=== PATIENT | male | born 1975 | race Caucasian/White ===

== ENCOUNTER 2018-01-28 15:23 | Emergency (ER) | payer OTHER ==
[~2018-01-28 15:23] MED LIST: ALB17R INH; ATOR10TA24 PO; BIOT800T4 PO; CALC-475 PO; CALC-515 PO; CLI150 PO; CLON-303 *; CLON-303 PO; ETOD-1 PO; FLUNR; FLUTR; GUAI1TAB PO; LEVO750T25 PO; LOR5/325 PO; MULT-820 PO; NAPR-1043 PO; OXYIR PO; PROP80TA25 PO; PSEU120T9 PO; RIS1 PO; SERT-173 PO; SILV20CR2 TP; SKULLCAP; TADA20TA33 PO; [UNRECOGNIZED DRUG - CODE] MC; [UNRECOGNIZED DRUG - CODE] PO; [UNRECOGNIZED DRUG - CODE] PO; [UNRECOGNIZED DRUG - OTHER]; [UNRECOGNIZED DRUG - OTHER]; [UNRECOGNIZED DRUG - OTHER] PO; [UNRECOGNIZED DRUG - REMARK]; [UNRECOGNIZED DRUG - REMARK]
[2018-01-28 15:30] VITALS: BP 112/96
[2018-01-28] MEDS ORDERED: DIPHTH/TETANUS/ACEL. PERTUSSIS IM ONLY ONE (15:30)
[2018-01-28] MEDS ORDERED: CETI-176 PO (15:30)
[2018-01-28] MEDS ORDERED: CLIN300C99 PO (15:33)
--- NOTE | 2018-01-28 15:33 | ER Report ---
History and Physical Time Seen By MD: 15:29 HPI/ROS CHIEF COMPLAINT: Stepped on a nail HISTORY OF PRESENT ILLNESS: 42-year-old male who stepped on a nail prior to presentation went through his gym shoe and sock into the bilateral dorsum plantar surface of his foot no bleeding barely broke the skin surface no other complaints noted REVIEW OF SYSTEMS: Respiratory: No cough, no dyspnea. Cardiovascular: No chest pain, no palpitations. Gastrointestinal: No vomiting, no abdominal pain. Musculoskeletal: No back pain. Remainder of the 14 system rev: Yes Allergies: Coded Allergies: Penicillins (Verified Allergy, Severe, 01/11/17) acetaminophen (Verified Adverse Reaction, Intermediate, UPSET STOMACH, ) Home Meds Active Scripts Hydrocodone Bit/Acetaminophen (HYDROCODON-ACETAMINOPHEN 5-325) 1 Each Tablet, 1 EACH PO Q4-6H, #8 TAB Prov:DARRELL MONROY NP 01/11/17 Silver Sulfadiazine (SILVADENE) 20 Gm Cream..g., 20 GM TP BID for 10 Days, #20 Prov:QUINTON GOMEZ MD 12/21/16 Reported Medications Pseudoephedrine Hcl (PSEUDOEPHEDRINE) 120 Mg Tablet.er, 120 MG PO QDAY 09/30/16 Naproxen Sodium (ALEVE) 220 Mg Tablet, 500 MG PO PRN, TAB 09/30/16 Atorvastatin Calcium (LIPITOR) 10 Mg Tablet, 1 TAB PO QDAY, TAB 09/30/16 Reviewed Nurses Notes: Yes Old Medical Records Reviewed: Yes Physical Exam General appearance: Alert no distress. Respiratory: Chest is non tender, lungs are clear to auscultation. Cardiac: Regular rate and rhythm [ ] Skin foot examination demonstrates a very small puncture wound very shallow barely through the dermal layer no signs of infection streaking astride a no sign of retained foreign body otherwise unremarkable DIFFERENTIAL DIAGNOSIS: After history and physical exam differential diagnosis was considered for stepped on a nail Medical Decision Making ED Course/Re-evaluation ED Course Patient's wound was barely superficial no need for copious irrigation we'll clean the wound update his tetanus started on antibiotics is allergic to penicillin Clindamycin and have him follow up with primary care if wound infection signs present Decision to Disposition Date: Jan 28, 2018 Decision to Disposition Time: 15:31 Depart Departure Impression: Primary Impression: Puncture wound Condition: Improved Disposition: HOME OR SELF-CARE Referrals: DIONTE GARZA MD 5 Days New Scripts Clindamycin Hcl (CLINDAMYCIN HCL) 300 Mg Capsule 300 MG PO Q6H, #40 CAPSULE Prov: QUINTON GOMEZ MD 01/28/18 Patient Instructions: Puncture Wound (DC) QUINTON GOMEZ MD Jan 28, 2018 15:33
== END 2018-01-28 15:45 | disposition home or self-care (01) ==
LOC: ER 15:30
DX: S91.332A Puncture wound without foreign body, left foot, initial encounter (principal)
CPT/HCPCS: 90471; 90715; 99283

== ENCOUNTER 2018-02-22 18:17 | Emergency (ER) | payer OTHER ==
[~2018-02-22 18:17] MED LIST changes: +CETI-176 PO; +CLIN300C99 PO
--- NOTE | 2018-02-22 18:18 | ER Report ---
History and Physical Time Seen By MD: 18:18 HPI/ROS CHIEF COMPLAINT: Left arm numbness, epigastric pain HISTORY OF PRESENT ILLNESS: 42-year-old male with a history of hypercholesterolemia presents with sudden onset of epigastric pain 30 minutes with left arm numbness. Patient notes some mild diaphoresis and some nausea. He denies shortness of breath. He notes cardiac history and his mom having an MD at age 69. Patient denies other cardiac risk factors hypertension, diabetes , smoker. Patient notes no exertional component. Patient notes no alleviating or exacerbating factors. Patient denies recent illness. Patient denies leg swelling or calf pain. REVIEW OF SYSTEMS: Respiratory: No cough, no dyspnea. Cardiovascular: As above Gastrointestinal: No vomiting, no abdominal pain. Musculoskeletal: No back pain. Allergies: Coded Allergies: Penicillins (Verified Allergy, Severe, 02/22/18) acetaminophen (Verified Adverse Reaction, Intermediate, UPSET STOMACH, 02/22) Uncoded Allergies: ANTIPSYCOTIC MEDS (Allergy, Unknown, 02/22/18) Home Meds Reported Medications Cetirizine Hcl (ZYRTEC) 10 Mg Tablet, 10 MG PO QDAY, TAB 01/28/18 Atorvastatin Calcium (LIPITOR) 10 Mg Tablet, 1 TAB PO QDAY, TAB 09/30/16 Discontinued Scripts Clindamycin Hcl (CLINDAMYCIN HCL) 300 Mg Capsule, 300 MG PO Q6H, #40 CAPSULE Prov:QUINTON GOMEZ MD 01/28/18 Reviewed Nurses Notes: Yes Old Medical Records Reviewed: Yes Constitutional Vital Sign - Last 24 Hours 02/22/18 02/22/18 02/22/18 18:21 19:00 19:30 Temp 97.6 Pulse 108 95 98 Resp 12 16 14 B/P (MAP) 163/114 153/111 (125) 144/102 (116) Pulse Ox 97 97 97 O2 Delivery Room Air Room Air Room Air Physical Exam General Appearance: The patient is alert, has no immediate need for airway protection and no current signs of toxicity. Mild distress, vital signs stable , afebrile, pulse ox normal HEENT: Pupils equal and round no injection. TMs, oropharynx without redness or exudate Respiratory: Chest is non tender, lungs are clear to auscultation. No chest wall tenderness Cardiac: regular rate and rhythm Gastrointestinal: Abdomen is soft and non tender, no masses, bowel sounds normal. Musculoskeletal: Neck: Neck is supple and non tender. Extremities have full range of motion and are non tender. Skin: No rashes or lesions. DIFFERENTIAL DIAGNOSIS: After history and physical exam differential diagnosis was considered for chest pain including but not limited to myocardial ischemia, pericarditis pulmonary embolus, chest wall pain, pleural inflammation and pulmonary infectious causes. Medical Decision Making Data Points Result Diagram: 02/22/18 1840 02/22/18 1840 Laboratory Hematology Test 02/22/18 18:40 Red Blood Count 6.06 M/uL (4.00-5.60) Mean Corpuscular Volume 86.1 fL (80.0-96.0) Mean Corpuscular Hemoglobin 30.2 pg (26.0-33.0) Mean Corpuscular Hemoglobin Concent 35.1 g/dL (32.0-36.0) Red Cell Distribution Width 13.0 % (11.5-14.5) Mean Platelet Volume 8.2 fL (7.2-11.1) Neutrophils (%) (Auto) 50.9 % (39.4-72.5) Lymphocytes (%) (Auto) 38.8 % (17.6-49.6) Monocytes (%) (Auto) 8.6 % (4.1-12.4) Eosinophils (%) (Auto) 1.1 % (0.4-6.7) Basophils (%) (Auto) 0.6 % (0.3-1.4) Nucleated RBC Relative Count (auto) 0.1 /100WBC Neutrophils # (Auto) 3.9 K/uL (2.0-7.4) Lymphocytes # (Auto) 3.0 K/uL (1.3-3.6) Monocytes # (Auto) 0.7 K/uL (0.3-1.0) Eosinophils # (Auto) 0.1 K/uL (0.0-0.5) Basophils # (Auto) 0.0 K/uL (0.0-0.1) Nucleated RBC Absolute Count (auto) 0.01 K/uL D-Dimer Quantitative (PE/DVT) < 0.27 ug/ml (0-0.50) Sodium Level 142 mmol/L (137-145) Potassium Level 3.8 mmol/L (3.5-5.0) Chloride Level 102 mmol/L (98-107) Carbon Dioxide Level 26 mmol/L (22-30) Blood Urea Nitrogen 16 mg/dl (9-21) Creatinine 1.00 mg/dl (0.66-1.25) Glomerular Filtration Rate Calc > 60.0 Random Glucose 131 mg/dl (75-110) Calcium Level 8.9 mg/dl (8.4-10.2) Total Bilirubin 0.7 mg/dl (0.2-1.3) Aspartate Amino Transf (AST/SGOT) 33 U/L (0-35) Alanine Aminotransferase (ALT/SGPT) 57 U/L (0-56) Alkaline Phosphatase 94 U/L (0-126) Troponin I < 0.012 ng/ml Total Protein 7.6 g/dl (6.3-8.2) Albumin 4.3 g/dl (3.5-5.0) Chemistry Test 02/22/18 18:40 White Blood Count 7.6 k/uL (4.5-11.0) Red Blood Count 6.06 M/uL (4.00-5.60) Hemoglobin 18.3 g/dL (14.0-18.0) Hematocrit 52.1 % (42.0-52.0) Mean Corpuscular Volume 86.1 fL (80.0-96.0) Mean Corpuscular Hemoglobin 30.2 pg (26.0-33.0) Mean Corpuscular Hemoglobin Concent 35.1 g/dL (32.0-36.0) Red Cell Distribution Width 13.0 % (11.5-14.5) Platelet Count 278 K/uL (150-450) Mean Platelet Volume 8.2 fL (7.2-11.1) Neutrophils (%) (Auto) 50.9 % (39.4-72.5) Lymphocytes (%) (Auto) 38.8 % (17.6-49.6) Monocytes (%) (Auto) 8.6 % (4.1-12.4) Eosinophils (%) (Auto) 1.1 % (0.4-6.7) Basophils (%) (Auto) 0.6 % (0.3-1.4) Nucleated RBC Relative Count (auto) 0.1 /100WBC Neutrophils # (Auto) 3.9 K/uL (2.0-7.4) Lymphocytes # (Auto) 3.0 K/uL (1.3-3.6) Monocytes # (Auto) 0.7 K/uL (0.3-1.0) Eosinophils # (Auto) 0.1 K/uL (0.0-0.5) Basophils # (Auto) 0.0 K/uL (0.0-0.1) Nucleated RBC Absolute Count (auto) 0.01 K/uL D-Dimer Quantitative (PE/DVT) < 0.27 ug/ml (0-0.50) Glomerular Filtration Rate Calc > 60.0 Calcium Level 8.9 mg/dl (8.4-10.2) Total Bilirubin 0.7 mg/dl (0.2-1.3) Aspartate Amino Transf (AST/SGOT) 33 U/L (0-35) Alanine Aminotransferase (ALT/SGPT) 57 U/L (0-56) Alkaline Phosphatase 94 U/L (0-126) Troponin I < 0.012 ng/ml Total Protein 7.6 g/dl (6.3-8.2) Albumin 4.3 g/dl (3.5-5.0) Coagulation Test 02/22/18 18:40 D-Dimer Quantitative (PE/DVT) < 0.27 ug/ml EKG/Imaging EKG Interpretation 12 lead EK Rhythm: Sinus tachycardia, rate 105 [place]: normal QRS: normal ST segments: normal, no evidence of ischemia or dysrhythmia Monitor Interpretation: Normal Sinus Rhythm Imaging X-ray: Two-view chest x-ray was obtained. I viewed the images myself on the PACS system. My interpretation of the images is: No infiltrate, no effusion, normal mediastinum. [The radiologist interpretation had no clinically significant variation from this interpretation]. ED Course/Re-evaluation Clinical Indication for ER IV: IV Access ED Course Patient was admitted to an examination room. H&P was done. The differential diagnoses was considered. On clinical examination. Patient has no chest wall tenderness. His EKG is normal. His d-dimer and troponin were unremarkable. Patient's chest x-ray was unremarkable. Patient was informed. His glucose was elevated. That he may have prediabetes. She is advised follow-up with primary care at the [facility] for recheck of his glucose. Patient will likely need a fasting level. Patient was informed that he has elevated H&H. He notes it's been chronic. He's been advised to donate blood. [facility]. Decision to Disposition Date: Feb 22, 2018 Decision to Disposition Time: 19:21 Depart Departure Latest Vital Signs Vital Signs Date Time Temp Pulse Resp B/P (MAP) Pulse Ox O2 Delivery O2 Flow Rate FiO2 02/22/18 19:30 98 14 144/102 (116) 97 Room Air 02/22/18 18:21 97.6 Impression: Primary Impression: Chest pain Additional Impressions: Pre-diabetes Polycythemia Hyperlipidemia GERD (gastroesophageal reflux disease) Condition: Improved Disposition: HOME OR SELF-CARE Patient Instructions: Gastroesophageal Reflux Disease (ED) Additional Instructions: Take Omeprazole/Prilosec 20 mg per day for one week for treatment of acid reflux [facility] a [facility] blood glucose level and hemoglobin A1c Also have evaluation for your elevated red blood cell count called polycythemia Problem Qualifiers Primary Impression: Chest pain Chest pain type: unspecified Qualified Codes: R07.9 - Chest pain, unspecified Additional Impressions: Hyperlipidemia Hyperlipidemia type: unspecified Qualified Codes: E78.5 - Hyperlipidemia, unspecified GERD (gastroesophageal reflux disease) Esophagitis presence: esophagitis presence not specified Qualified Codes: K21.9 - Gastro-esophageal reflux disease without esophagitis LAVONNE ARRIAGA DO Feb 22, 2018 18:18
[2018-02-22] MEDS ORDERED: ASPIRIN 81 MG CHEW PO ONE (18:35)
--- NOTE | 2018-02-22 18:42 | EKG ---
FACILITY: [facility] - [place] PATIENT NAME: BARBARA FRASER : [id number] MR: [id number] V: [id number] EXAM DATE: ORDERING PHYSICIAN: LAVONNE ARRIAGA TECHNOLOGIST: LEONCIO Khan Reason : Blood Pressure : / mmHG Vent. Rate : 105 BPM Atrial Rate : 105 BPM P-R Int : 128 ms QRS Dur : 096 ms QT Int : 346 ms P-R-T Axes : 059 067 011 degrees QTc Int : 457 ms Sinus tachycardia Otherwise normal ECG No previous ECGs available Confirmed by GINNY RICH ([id number]) on 02/22/2018 10:17:47 PM Referred By: Confirmed By:GINNY RICH
[2018-02-22 18:54] LABS: PLATELET COUNT, AUTOMATED 278 K/uL (150-450)
--- NOTE | 2018-02-22 19:19 | RADIOLOGY IMAGING REPORT ---
FACILITY: [facility] PATIENT NAME: Farhan Becker : 1975 MR: [id number] V: [id number] EXAM DATE: ORDERING PHYSICIAN: LAVONNE ARRIAGA TECHNOLOGIST: Location: [facility] [place] Patient: Farhan Becker : 1975 Visit/Account:[id number] Date of Sevice: 02/22/2018 CHEST PA AND LAT COMPARISONS: Single view chest dated August 10, 2008 ADDITIONAL PERTINENT HISTORY: Chest pain for one hour FINDINGS: Cardiomediastinal silhouette: Negative. Pulmonary vasculature: Negative. Lung leo: Negative. Pleural spaces: Negative. Osseous structures: Negative. Surrounding soft tissues: Negative. IMPRESSION: Normal views of the chest. Report Dictated By: Adrián Briscoe MD at 02/22/2018 7:14 PM Report E-Signed By: Adrián Briscoe MD at 02/22/2018 7:15 PM WSN:[id number]
[2018-02-22 19:30] VITALS: BP 144/102
== END 2018-02-22 19:41 | disposition home or self-care (01) ==
LOC: ER 18:25
DX: R07.9 Chest pain, unspecified (principal); R73.03 Prediabetes; D75.1 Secondary polycythemia; E78.5 Hyperlipidemia, unspecified; K21.9 Gastro-esophageal reflux disease without esophagitis
CPT/HCPCS: 36415; 71046; 82040; 82247; 82310; 82374; 82435; 82565; 82947; 84075; 84132; 84155; 84295; 84450; 84460; 84484; 84520; 85025; 85379; 93005; 99284

== ENCOUNTER 2018-04-24 16:09 | Emergency (ER) | payer OTHER ==
--- NOTE | 2018-04-24 16:28 | ER Report ---
History and Physical Time Seen By MD: 16:18 Hx. of Stated Complaint: PT REPORTS INFECTED STITCHES FROM BENIGN TUMOR REMOVAL DONE AT [facility] 8 DAYS AGO HPI/ROS CHIEF COMPLAINT: infected stitches HISTORY OF PRESENT ILLNESS: This is a 42 year old male. He had a lesion removed from abdominal skin on left lower abdomen last (8 days ago). Redness with a few small pustules on the skin around the wound. Healing well and no sign of dehiscence. Concerned about infection. Having increased pain in the area. No fevers. Allergies: Coded Allergies: Penicillins (Verified Allergy, Severe, 04/24/18) acetaminophen (Verified Adverse Reaction, Intermediate, UPSET STOMACH, 04/24/18) Uncoded Allergies: ANTIPSYCOTIC MEDS (Allergy, Unknown, 02/22/18) Home Meds Active Scripts Oxycodone Hcl (OXYCODONE HCL) 5 Mg Tablet, 5 MG PO Q4H PRN for PAIN, #8 TAB 0 Refills Prov:KAMRON DOAN MD 04/24/18 Sulfamethoxazole/Trimet 800-160 Mg Tab (BACTRIM DS TABLET) 1 Each Tablet, 1 TAB PO Q12H, #14 TAB 0 Refills Prov:KAMRON DOAN MD 04/24/18 Reported Medications Cetirizine Hcl (ZYRTEC) 10 Mg Tablet, 10 MG PO QDAY, TAB 01/28/18 Atorvastatin Calcium (LIPITOR) 10 Mg Tablet, 1 TAB PO QDAY, TAB 09/30/16 Reviewed Nurses Notes: Yes Constitutional Vital Sign - Last 24 Hours 04/24/18 04/24/18 04/24/18 16:12 16:15 16:30 Temp 98.1 Pulse 104 105 103 Resp 16 B/P (MAP) 145/105 136/104 (115) Pulse Ox 91 94 92 O2 Delivery Room Air Physical Exam General: Alert, mild distress due to pain. Skin: Running stitches with surrounding skin very red and warm and inflamed. Tender to touch. Small pustules near where stitches go through the skin, but the incision itself is not coming apart and no drainage from incision. Medical Decision Making ED Course/Re-evaluation ED Course I removed the stitches and then reinforced the skin with steri-strips and benzoin. Wound without dehiscence. Discussed wound care. Bactrim DS prescribed. Oxycodone without acetaminophen immediate release provided to help with pain. Decision to Disposition Date: Apr 24, 2018 Decision to Disposition Time: 16:29 Depart Departure Latest Vital Signs Vital Signs Date Time Temp Pulse Resp B/P (MAP) Pulse Ox O2 Delivery O2 Flow Rate FiO2 04/24/18 16:30 103 136/104 (115) 92 04/24/18 16:12 98.1 16 Room Air Impression: Primary Impression: Wound, surgical, infected Condition: Improved Disposition: HOME OR SELF-CARE New Scripts Oxycodone Hcl (OXYCODONE HCL) 5 Mg Tablet 5 MG PO Q4H PRN for PAIN, #8 TAB 0 Refills Prov: KAMRON DOAN MD 04/24/18 Sulfamethoxazole/Trimet 800-160 Mg Tab (BACTRIM DS TABLET) 1 Each Tablet 1 TAB PO Q12H, #14 TAB 0 Refills Prov: KAMRON DOAN MD 04/24/18 Patient Instructions: Cellulitis (ED) Additional Instructions: Take the antibiotic Bactrim DS twice a day for 7 days. Take Ibuprofen as needed for pain. For more severe pain, take oxycodone 5mg tablets, one every 4 hours as needed for pain. Wash the wound twice a day with soap and water and apply a clean dressing. Apply a heating pad every hour for 15-20 minutes to help bring blood flow to the area. Problem Qualifiers Primary Impression: Wound, surgical, infected Encounter type: initial encounter Qualified Codes: T81.4XXA - Infection following a procedure, initial encounter KAMRON DOAN MD Apr 24, 2018 16:28
[2018-04-24 16:30] VITALS: BP 136/104
[2018-04-24] MEDS ORDERED: OXYC5TAB38 PO (16:30)
[2018-04-24] MEDS ORDERED: SULF-198 PO (16:30)
== END 2018-04-24 16:38 | disposition home or self-care (01) ==
LOC: ER 16:19
DX: T81.4XXA Infection following a procedure, initial encounter (principal)
CPT/HCPCS: 99282

== ENCOUNTER 2018-10-08 14:56 | Emergency (ER) | payer OTHER ==
[~2018-10-08 14:56] MED LIST changes: +OXYC5TAB38 PO; +SULF-198 PO
[2018-10-08] MEDS ORDERED: ROPI0.2530 PO (15:15)
[2018-10-08] MEDS ORDERED: ESCI20TA8 PO (15:15)
--- NOTE | 2018-10-08 15:55 | ER Report ---
History and Physical Time Seen By MD: 15:20 Hx. of Stated Complaint: left arm pain HPI/ROS CHIEF COMPLAINT: arm pain HISTORY OF PRESENT ILLNESS: 42-year-old male presents with 36 hours of intermittent left arm pain. He states this happens occasionally, usually every 2 weeks, seems to happen when he lies on the left arm. Of note, he has history of shrapnel injury to the left wrist as well as nerve decompression surgery. He has had symptoms intermittently since that time. However, patient is concerned because his mother recently had a heart attack in father recently had a stroke, and is concerned that this may be sign of heart attack. He does not have chest pain, shortness of breath, symptoms with exertion. He does have hypertension and hypercholesterol. He has had recent congestion and URI symptoms. He is not traveled in the last 6 weeks. He does not have lower extremity swelling, pain. REVIEW OF SYSTEMS: Constitutional: No fever, no chills. Eyes: no blurred vision ENT: No sore throat. Cardiovascular: No chest pain, no palpitations. Respiratory: No cough, no shortness of breath. Gastrointestinal: no vomiting Genitourinary: no dysuria Musculoskeletal: No back pain. Otherwise as above Skin: No rashes. Neurological: No headache. Remainder of the 14 system rev: Yes Allergies: Coded Allergies: Penicillins (Verified Allergy, Severe, 10/08/18) acetaminophen (Verified Adverse Reaction, Intermediate, UPSET STOMACH, 10/08/18) Uncoded Allergies: ANTIPSYCOTIC MEDS (Allergy, Unknown, 02/22/18) Home Meds Reported Medications Ropinirole Hcl (ROPINIROLE HCL) 0.25 Mg Tablet, 0.25 MG PO QDAY 10/08/18 Escitalopram Oxalate (ESCITALOPRAM OXALATE) 20 Mg Tablet, 20 MG PO QDAY 10/08/18 Cetirizine Hcl (ZYRTEC) 10 Mg Tablet, 10 MG PO QDAY, TAB 01/28/18 Atorvastatin Calcium (LIPITOR) 10 Mg Tablet, 1 TAB PO QDAY, TAB 09/30/16 Discontinued Scripts Oxycodone Hcl (OXYCODONE HCL) 5 Mg Tablet, 5 MG PO Q4H PRN for PAIN, #8 TAB 0 Refills Prov:KAMRON DOAN MD 04/24/18 Sulfamethoxazole/Trimet 800-160 Mg Tab (BACTRIM DS TABLET) 1 Each Tablet, 1 TAB PO Q12H, #14 TAB 0 Refills Prov:KAMRON DOAN MD 04/24/18 Reviewed Nurses Notes: Yes Constitutional Vital Sign - Last 24 Hours 10/08/18 10/08/18 10/08/18 10/08/18 15:06 15:11 15:26 15:26 Temp 97.7 Pulse 86 77 Resp 12 B/P (MAP) 169/122 (138) 169/122 148/111 (123) Pulse Ox 95 94 O2 Delivery Room Air 10/08/18 10/08/18 10/08/18 16:01 16:26 16:46 Pulse 78 77 B/P (MAP) 138/113 (121) Pulse Ox 93 92 Physical Exam General Appearance: The patient is alert, has no immediate need for airway protection and no signs of toxicity. [ ] Eyes: Pupils equal and round no pallor or injection. ENT, Mouth: Mucous membranes are moist. Respiratory: There are no retractions, lungs are clear to auscultation. Cardiovascular: Regular rate and rhythm. Neurological: alert, moves all ext Skin: Warm and dry, no rashes. Musculoskeletal: Neck is supple non tender. Extremities are nontender, nonswollen and have full range of motion with exception of palpation of left upper prox arm, without erythema, mass, lymphadenopathy. DIFFERENTIAL DIAGNOSIS: After history and physical exam differential diagnosis was considered for acs, pe, pneumonia, pneumothorax Medical Decision Making Data Points Laboratory Hematology Test 10/08/18 15:22 Troponin I < 0.012 ng/ml Chemistry Test 10/08/18 15:22 Troponin I < 0.012 ng/ml EKG/Imaging EKG Interpretation 12 lead EKG: Rhythm: Normal sinus rhythm [place]: Normal QRS: Normal ST segments: Normal Monitor Interpretation: Normal Sinus Rhythm ED Course/Re-evaluation ED Course Patient presents with left arm pain that appears musculoskeletal/neuropathic, without signs of neck injury or pain, and without chest pain. Given risk factors and concern, I evaluated for ACS with low pretest probability. EKG is normal and troponin is negative. Patient has heart score less than 4. Unlikely ACS. We'll discharge with strict return precautions. Decision to Disposition Date: Oct 08, 2018 Decision to Disposition Time: 16:39 Depart Departure Latest Vital Signs Vital Signs Date Time Temp Pulse Resp B/P (MAP) Pulse Ox O2 Delivery O2 Flow Rate FiO2 2/14/19 16:46 77 92 10/08/18 16:26 138/113 (121) 10/08/18 15:11 97.7 12 Room Air Impression: Primary Impression: Arm pain, left Condition: Improved Disposition: HOME OR SELF-CARE Referrals: [facility] 5 Days Additional Instructions: Please follow up with the primary doctor for further evaluation of your intermittent pain. It is unlikely that this is a sign of heart attack, and you do not have concerning findings in the emergency department. However, if you de velop chest pain, shortness of breath, or any other concerning symptoms please return for further evaluation DEBORA MCGREGOR MD Oct 08, 2018 15:55
[2018-10-08 16:26] VITALS: BP 138/113
--- NOTE | 2018-10-09 08:21 | EKG ---
FACILITY: [facility] [place] PATIENT NAME: BARBARA FRASER : [id number] MR: [id number] V: [id number] EXAM DATE: ORDERING PHYSICIAN: DEBORA MCGREGOR TECHNOLOGIST: CRIS Test Reason : L ARM PAIN Blood Pressure : / mmHG Vent. Rate : 080 BPM Atrial Rate : 080 BPM P-R Int : 144 ms QRS Dur : 090 ms QT Int : 372 ms P-R-T Axes : 040 047 015 degrees QTc Int : 429 ms Sinus rhythm Possible left atrial enlargement When compared with ECG of 22-FEB-2018 18:36, No significant change was found Confirmed by AJ GOTTI ([id number]) on 10/09/2018 4:39:08 PM Referred By: MECHE Confirmed By:AJ GOTTI
== END 2018-10-08 16:55 | disposition home or self-care (01) ==
LOC: ER 15:20
DX: M79.602 Pain in left arm (principal)
CPT/HCPCS: 84484; 99283

== ENCOUNTER 2018-10-26 14:28 | Emergency (ER) | payer OTHER ==
[~2018-10-26 14:28] MED LIST changes: +ESCI20TA8 PO; +ROPI0.2530 PO
[2018-10-26] MEDS ORDERED: NS(*) 0.9% 1000 ML BAG 1,000 ML IV ONE (14:50)
[2018-10-26] MEDS ORDERED: KETOROLAC 30 MG/ML VIAL IVP ONE (14:50)
--- NOTE | 2018-10-26 15:06 | ER Report ---
History and Physical Time Seen By MD: 14:41 Hx. of Stated Complaint: COUGH, FEVER SINCE LAST FRIDAY. HPI/ROS CHIEF COMPLAINT: cough and fever HISTORY OF PRESENT ILLNESS: This is a 42 year old male. He has been having cough, fever and body aches for several days now. Cough become severe that he starts gagging and has had a couple episodes of post tussive emesis. Has been sick for about a days. Has diffuse aches and pains. Very congested in the chest and postnasal area. REVIEW OF SYSTEMS: Respiratory: [No cough, no dyspnea.] Cardiovascular: [No chest pain, no palpitations.] Gastrointestinal: [No vomiting, no abdominal pain.] Musculoskeletal: [No back pain.] Allergies: Coded Allergies: Penicillins (Verified Allergy, Severe, 10/08/18) acetaminophen (Verified Adverse Reaction, Intermediate, UPSET STOMACH, 10/08/18) Uncoded Allergies: ANTIPSYCOTIC MEDS (Allergy, Unknown, 02/22/18) Home Meds Active Scripts Guaifenesin/Codeine (GUAIFENESIN-CODEINE SYRUP) 5 Ml Syrp, 5 ML PO Q6H PRN for COUGH, #120 ML 0 Refills Prov:KAMRON DOAN MD 10/26/18 Reported Medications Ropinirole Hcl (ROPINIROLE HCL) 0.25 Mg Tablet, 0.25 MG PO QDAY 10/08/18 Cetirizine Hcl (ZYRTEC) 10 Mg Tablet, 10 MG PO QDAY, TAB 01/28/18 Atorvastatin Calcium (LIPITOR) 10 Mg Tablet, 1 TAB PO QDAY, TAB 09/30/16 Discontinued Reported Medications Escitalopram Oxalate (ESCITALOPRAM OXALATE) 20 Mg Tablet, 20 MG PO QDAY 10/08/18 Reviewed Nurses Notes: Yes Constitutional Vital Sign - Last 24 Hours 10/26/18 10/26/18 10/26/18 10/26/18 14:31 14:32 15:00 15:30 Temp 97.8 Pulse 92 90 85 Resp 20 B/P (MAP) 157/105 (122) 157/105 144/104 (117) 137/94 (108) Pulse Ox 93 91 93 O2 Delivery Room Air 10/26/18 16:00 Pulse 87 B/P (MAP) 145/98 (114) Pulse Ox 92 Physical Exam General Appearance: The patient is alert. No acute distress. Eyes: Pupils are equal, round. No pallor, injection or icterus. ENT: Mucous membranes are moist. Normal oral mucosa. Posterior oropharynx with erythema and postnasal drainage. Nasal mucosa erythematous with mucous. Normal tympanic membranes and canals. Neck: Supple and non tender. Has anterior cervical lymphadenopathy. Respiratory: Lungs with rhonchi, no wheezing or rales, good air movement Cardiovascular: Regular rate and rhythm. No murmurs, gallops or rubs. Normal capillary refill. Gastrointestinal: Abdomen is soft and non tender. Nondistended. Normal active bowel sounds. Neurological: Alert and oriented x3. No focal neurologic deficits Skin: Warm and dry. Musculoskeletal: Extremities with diffuse aches DIFFERENTIAL DIAGNOSIS: After history and physical exam, differential diagnosis was considered for viral syndrome such as influenza or other Medical Decision Making Data Points Laboratory Hematology Test 10/26/18 14:33 Influenza Virus Type A (PCR) Negative (NEGATIVE) Influenza Virus Type B (PCR) Negative (NEGATIVE) Chemistry Test 10/26/18 14:33 Influenza Virus Type A (PCR) Negative (NEGATIVE) Influenza Virus Type B (PCR) Negative (NEGATIVE) EKG/Imaging Imaging Technique: CHEST SINGLE AP HISTORY: Cold, flulike symptoms Comparison studies: Chest radiograph February 22, 2018 FINDINGS: No acute airspace consolidation. No pleural effusion. The cardiomediastinal silhouette is unchanged. IMPRESSION: 1. No acute cardiopulmonary process. Report Dictated By: Fabio Hinson DO at 10/26/2018 3:14 PM ED Course/Re-evaluation ED Course Influenza negative. Chest x-ray negative. Appears to be viral syndrome. Recommended symptomatic treatment. Did provide a prescription for guaifenesin with codeine to help with cough and rest. Decision to Disposition Date: Oct 26, 2018 Decision to Disposition Time: 16:16 Depart Departure Latest Vital Signs Vital Signs Date Time Temp Pulse Resp B/P (MAP) Pulse Ox O2 Delivery O2 Flow Rate FiO2 10/26/18 16:00 87 145/98 (114) 92 10/26/18 14:32 97.8 20 Room Air Impression: Primary Impression: Viral syndrome Condition: Improved Disposition: HOME OR SELF-CARE New Scripts Guaifenesin/Codeine (GUAIFENESIN-CODEINE SYRUP) 5 Ml Syrp 5 ML PO Q6H PRN for COUGH, #120 ML 0 Refills Prov: FRANKI,KAMRON W MD 10/26/18 Patient Instructions: Viral Syndrome (ED) Additional Instructions: Rest and increase fluid intake for the next few days. Take Naproxen twice a day as needed for pain. Guaifenesin with Codeine cough syrup, 1 teaspoon every 4 hours as needed for severe cough. KAMRON DOAN MD Oct 26, 2018 15:06
--- NOTE | 2018-10-26 15:24 | RADIOLOGY IMAGING REPORT ---
FACILITY: [facility] - [place] PATIENT NAME: Farhan Becker : 1975 MR: [id number] V: [id number] EXAM DATE: ORDERING PHYSICIAN: KAMRON DOAN TECHNOLOGIST: [facility] Patient: Farhan Becker : 1975 Visit/Account:[id number] Date of Sevice: 10/26/2018 Technique: CHEST SINGLE AP HISTORY: Cold, flulike symptoms Comparison studies: Chest radiograph February 22, 2018 FINDINGS: No acute airspace consolidation. No pleural effusion. The cardiomediastinal silhouette is unchanged. IMPRESSION: 1. No acute cardiopulmonary process. Report Dictated By: Fabio Hinson DO at 10/26/2018 3:14 PM Report E-Signed By: Fabio Hinson DO at 10/26/2018 3:20 PM WSN:[id number]
[2018-10-26 16:00] VITALS: BP 145/98
[2018-10-26] MEDS ORDERED: ROBC PO (16:17)
[2018-10-27] MEDS ORDERED: BENZ100C4 PO (15:09)
== END 2018-10-26 16:26 | disposition home or self-care (01) ==
LOC: ER 14:36
DX: B34.9 Viral infection, unspecified (principal)
CPT/HCPCS: 71045; 87502; 96361; 96374; 99283; J1885; J7030

== ENCOUNTER 2019-03-22 03:31 | Emergency (ER) | payer OTHER ==
[~2019-03-22 03:31] MED LIST changes: +BENZ100C4 PO; +ROBC PO
--- NOTE | 2019-03-22 03:34 | ER Report ---
History and Physical Time Seen By MD: 03:30 HPI/ROS CHIEF COMPLAINT: Anxiousness, elevated blood pressure HISTORY OF PRESENT ILLNESS: 43-year-old male presents a to the ER concerned about his elevated blood pressure. He is on blood pressure medication, lisinopril 10 no grams per day. He took an extra 10 mg. He noted his blood pressure was grossly elevated at home. He became anxious and short of breath. He presents to the ER concerned that he may be having a stroke or a heart attack. He's presented to the ER in the past with both similar presentations concerned about cardiac disease and stroke. Each of his parents of suffered one of the other. Patient's blood pressure is grossly elevated on arrival 156/117. He denies any chest pain, shortness of breath or blurry vision. REVIEW OF SYSTEMS: Respiratory: No cough, no dyspnea. Cardiovascular: No chest pain, no palpitations. Gastrointestinal: No vomiting, no abdominal pain. Musculoskeletal: No back pain. Allergies: Coded Allergies: Penicillins (Verified Allergy, Severe, 10/08/18) acetaminophen (Verified Adverse Reaction, Intermediate, UPSET STOMACH, 10/08/18) Uncoded Allergies: ANTIPSYCOTIC MEDS (Allergy, Unknown, 02/22/18) Home Meds Active Scripts Benzonatate 100 Mg Cap (TESSALON PERLE 100 MG CAP) 100 Mg Capsule, 100 MG PO TID, #15 CAP 0 Refills Prov:KAMRNO DOAN MD 10/27/18 Guaifenesin/Codeine (GUAIFENESIN-CODEINE SYRUP) 5 Ml Syrp, 5 ML PO Q6H PRN for COUGH, #120 ML 0 Refills Prov:KAMRON DOAN MD 10/26/18 Reported Medications Ropinirole Hcl (ROPINIROLE HCL) 0.25 Mg Tablet, 0.25 MG PO QDAY 10/08/18 Cetirizine Hcl (ZYRTEC) 10 Mg Tablet, 10 MG PO QDAY, TAB 01/28/18 Atorvastatin Calcium (LIPITOR) 10 Mg Tablet, 1 TAB PO QDAY, TAB 09/30/16 Reviewed Nurses Notes: Yes Old Medical Records Reviewed: Yes Constitutional Vital Sign - Last 24 Hours 03/22/19 03/22/19 03/22/19 03/22/19 03:31 03:38 03:44 04:00 Temp 98.4 Pulse ??? 85 Resp 16 B/P (MAP) 159/117 (131) 159/117 155/108 (124) Pulse Ox 94 O2 Delivery Room Air 03/22/19 03/22/19 03/22/19 03/22/19 04:01 04:15 04:30 04:31 Pulse 73 73 Resp 10 9 B/P (MAP) 148/104 (119) 148/103 (118) Pulse Ox 92 94 Physical Exam BP grossly elevated, other vital signs unremarkable General Appearance: The patient is alert, has no immediate need for airway protection and no current signs of toxicity. Skin warm, dry, pink, no acute distress Eyes: Pupils equal and round no injection. Respiratory: Chest is non tender, lungs are clear to auscultation. Cardiac: regular rate and rhythm, no murmur Gastrointestinal: Abdomen is soft and non tender, no masses, bowel sounds normal. Musculoskeletal: Neck: Neck is supple and non tender. Extremities have full range of motion and are non tender. Skin: No rashes or lesions. DIFFERENTIAL DIAGNOSIS: After history and physical exam differential diagnosis was considered for shortness of breath including but not limited to pulmonary infectious process, COPD, asthma, pulmonary embolus and congestive heart failure. Medical Decision Making EKG/Imaging EKG Interpretation 12 lead EK Rhythm: normal sinus rhythm with sinus arrhythmia Wellman: normal QRS: normal ST segments: normal, no evidence of ischemia, no change on comparison to previous EKG. ED Course/Re-evaluation ED Course Patient was admitted to an examination room. H&P was done. The differential diagnoses was considered. On conical examination. Patient has grossly elevated blood pressure. He's otherwise unremarkable. On conical examination. His EKG is unremarkable. Patient was medicated with Norvasc 5 mg by mouth. He was monitored and his blood pressure came down nicely. He's discharged home and advised to increase his lisinopril to 20 mg per day and follow-up with his primary care in 3-5 days for blood pressure recheck. Decision to Disposition Date: Mar 22, 2019 Decision to Disposition Time: 03:57 Depart Departure Latest Vital Signs Vital Signs Date Time Temp Pulse Resp B/P (MAP) Pulse Ox O2 Delivery O2 Flow Rate FiO2 03/22/19 04:31 73 9 94 03/22/19 04:30 148/103 (118) 03/22/19 03:44 98.4 Room Air Impression: Primary Impression: Hypertension Additional Impressions: Chronic pain of left upper extremity Anxiety about health Condition: Improved Disposition: HOME OR SELF-CARE Patient Instructions: Hypertension (DC) Additional Instructions: Increase your lisinopril to 20 mg per day. Follow-up with your primary care doctor for recheck of your blood pressure in 3- 5 days. Problem Qualifiers Primary Impression: Hypertension Hypertension type: essential hypertension Qualified Codes: I10 - Essential (primary) hypertension LAVONNE ARRIAGA DO Mar 22, 2019 03:34
[2019-03-22] MEDS ORDERED: amLODIPine BESYL(*) 5 MG TAB PO ONE (03:50)
[2019-03-22 04:30] VITALS: BP 148/103
--- NOTE | 2019-03-22 06:28 | EKG ---
FACILITY: [facility] - [place] PATIENT NAME: BARBARA FRASER : [id number] MR: [id number] V: [id number] EXAM DATE: ORDERING PHYSICIAN: LAVONNE ARRIAGA TECHNOLOGIST: LEONCIO Khan Reason : Blood Pressure : / mmHG Vent. Rate : 071 BPM Atrial Rate : 071 BPM P-R Int : 134 ms QRS Dur : 090 ms QT Int : 398 ms P-R-T Axes : 049 058 040 degrees QTc Int : 432 ms Normal sinus rhythm with sinus arrhythmia Normal ECG Confirmed by GINNY RICH ([id number]) on 03/22/2019 6:33:03 AM Referred By: Confirmed By:GINNY RICH
== END 2019-03-22 04:38 | disposition home or self-care (01) ==
LOC: ER 03:56
DX: I10 Essential (primary) hypertension (principal); M79.602 Pain in left arm; F41.9 Anxiety disorder, unspecified
CPT/HCPCS: 93005; 99283